=== PATIENT | female | born 1965 | race Caucasian/White ===

== ENCOUNTER 2019-04-28 19:22 | Outpatient (REF) | payer BC, SELFPAY ==
[2019-04-28 19:58] LABS: Hemoglobin A1C 5.9 % (4.5-6.2)
[2019-04-28 20:12] LABS: TSH (W/Ref FT4) 3.34 uIU/mL (0.36-3.74)
[2019-04-30 13:05] LABS: Lyme Ab w Rflx to Lyme Confirm Negative
== END 2019-04-28 19:42 ==
LOC: NCHCN 19:22
PROVIDERS: PCP Nurse Practitioner Family; Visit Provider Nurse Practitioner Family
DX: E03.9 Hypothyroidism, unspecified (principal); R73.03 Prediabetes; M25.50 Pain in unspecified joint
CPT/HCPCS: 83036; 84443; 86618

== ENCOUNTER 2019-08-13 11:53 | Outpatient (CLI) | payer BC, SELFPAY ==
[2019-08-20 15:15] LABS: TB Interpretation Negative (Negative); TB1 Ag minus Nil 0.01 IU/ml; TB2 Ag minus Nil 0.01 IU/mL
== END 2019-08-13 12:13 ==
PROVIDERS: PCP Nurse Practitioner Family; Visit Provider Nurse Practitioner Family
DX: Z11.1 Encounter for screening for respiratory tuberculosis (principal)
CPT/HCPCS: 86480

== ENCOUNTER 2019-11-06 15:45 | Outpatient (REF) | payer OTHER, SELFPAY ==
--- NOTE | 2019-11-06 15:15 | PAPFT_PTH ---
PATIENT: Annabel Conklin LOC: [facility] U#:[id number] AGE/SX: 54/F ROOM: RE11/06/[address]: Janett Patino : 1965 BED: DIS: 11/06/2019 SPEC #: [id number] RECD: 11/07/19 13:05 STATUS: MICHELLE REEvy #: [id number] RAHEL: 11/06/19 15:[address]: Janett Patino DEPT: [facility] Cytology RECD BY: Danitza Koehler Tissues: 1 - CX/ENDOCX FOR PAP SMEARS Procedures: PAP THIN PREP/UVM Screening HPV DNA PROBE Comments: [id number]
== END 2019-11-06 16:05 ==
LOC: NCHCN 15:45
PROVIDERS: PCP Nurse Practitioner Family; Visit Provider Nurse Practitioner Family
DX: Z00.00 Encounter for general adult medical examination without abnormal findings (principal); Z12.4 Encounter for screening for malignant neoplasm of cervix; Z11.51 Encounter for screening for human papillomavirus (HPV)
CPT/HCPCS: 88142; 87624

== ENCOUNTER 2019-11-10 11:46 | Day surgery (SDC) | payer OTHER, SELFPAY ==
--- NOTE | 2019-11-10 07:05 | W.COLOREPORT ---
Date of service: 11/10/19 Time of Service: 12:56 Colonoscopy Report Date of procedure: 11/10/19 Pre-op diagnosis general: Colon Cancer Screening and Family history of colon cancer Post-op diagnosis procedure note: other (polyps x2) Procedure: Colonoscopy with polypectomy Surgeon: Sherrell Santizo Anesthesia proc note operative: other (General/ ASA 2/[place]a [place]ks, LAMBERT) Estimated blood loss (mL): 3 Pathology: other (Transverse polyp and descending polyp) Complications: None Disposition: same day Indications: 54 y/o female with history of IBS and asthma presents for colonoscopy screening pre-op. Her last screening was in 2010, which was unremarkable. She reports a family history of colon cancer in her father at the age of 65. She denies any changes in bowel habits including bloody or black tarry stools, abdominal pain, diarrhea or constipation. Risks, benefits and complications have been reviewed. Complications include but are not limited to bleeding, pain, perforation, missed small lesion/polyp, sore throat, aspiration and adverse reaction to the medications. Questions were entertained and answered to their satisfaction and they wished to proceed. No guarantees were given or implied. Prep: Miralax/Dulcolax Procedure Start Time: 12:56 Procedure End Time: 13:33 Retraction Time: 28 minutes Findings: 2 Adenomatous polyps Procedure Description: After informed consent was obtained the patient was taken to the procedure room and placed in a left decubitous position. Monitors were applied and a time out was done. The patients name, date of , procedure, allergies to medications and metal in their body was reviewed. The patient was then sedated. Once sedated and comfortable a rectal exam was done. External exam was normal. Internal exam revealed a normal sphincter tone and no palpable masses. The scope was then introduced and retro-flexed. No internal hemorrhoids, masses or polyps were identified in the rectum. The scope was then advanced to the cecum without difficulty. The ileocecal valve and appendiceal orifice were identified. The prep was adequate. There was some liquid stool noted throughout the colon. The scope was then slowly retracted over 25 minutes back into the rectum. Polyps were removed with cold forceps in the Transverse colon and Descending colon. There were no diverticula noted. The scope was removed and the patient was woken up and taken back to Same day surgery in stable condition. The patient tolerated the procedure well and there were no immediate complications. Follow up: The patient should follow up in 3-5 years unless they develop changes in bowel habits or other new gastrointestinal complaints.
--- NOTE | 2019-11-10 07:06 | PDOC.DSDIS_ITS ---
Discharge Plan Disposition Patient Disposition: HOME Condition: Good Discharge Details Reason For Visit: SCREENING Attending Provider: Sherrell Santizo Primary Care Provider: Janett Patino Home Meds and New Rx's Prescriptions: Continued albuterol sulfate [Ventolin HFA] 90 mcg/actuation HFA aerosol inhaler 2 puff IH Q4H PRNRF: 0 Breo Ellipta 200-25 mcg/dose blister with device 1 inh IH DAILY RF: 0 venlafaxine 150 mg tablet extended release 24hr 150 mg PO DAILY RF: 0 Discharge Instructions Instructions: Colorectal Polyps (DC) Additional Instructions: Findings: 2 polyps Follow up: 3-5 years Please call if you develop: fevers >101.5 Nausea or Vomiting Abdominal pain that is not transient DAY SURGERY UNIT POST ENDOSCOPY INSTRUCTIONS 1. Because there will be medication in your system for the next 24 hours, you may feel a little sleepy. Your coordination will be affected. Therefore: a. Do not drive or operate dangerous equipment for 24 hours. b. Do not drink alcohol beverages for 24 hours (not even beer). c. Plan to go home and rest for the day. 2. Generally there are no restrictions on your activity after a day or so has gone by, but you may feel a bit fatigued for a few days. 3 After you arrive home you may have a light meal and return to a normal diet as you can tolerate it without feeling sick to your stomach. 4. After surgery, you may feel pain or discomfort. This should be only trejo sient, but if it persists please contact your doctor. 5. If there are any questions regarding the findings of your procedure, please feel free to contact your doctor. 6. If you are unable to contact your doctor with a problem, contact the hospital at [phone]. 7. Continue all your regular medications unless directed otherwise. I understand the above instructions and have no questions. Signature of Patient or Responsible Adult Escort Date/Time Name of Responsible Adult Escort Signature of Nurse Date/Time Activity:: Activity as Tolerated Diet:: As Tolerated Discharge Orders Discharge Orders: Discharge Order (Routine); Ordered 11/10/19 Ordered By: Sherrell Santizo
[2019-11-10 12:09] VITALS: BP 128/87; PULSE 57; RESP 16; TEMP 36.2; O2SAT 98
[2019-11-10] MEDS: Lactated Ringers 1,000 ML 80 ML IV (12:25)
--- NOTE | 2019-11-10 13:16 | BOWEL_PTH ---
PATIENT: Annabel Conklin LOC: [facility] U#:[id number] AGE/SX: 54/F ROOM: RE11/10/[address]: Sherrell Santizo MD : 1965 BED: DIS: 11/10/2019 SPEC #: [id number] RECD: 11/10/19 18:08 STATUS: MICHELLE RE #: [id number] RAHEL: 11/10/19 13:[address]: Sherrell Santizo DEPT: Surgical Specimen RECD BY: Danitza Koehler ENTERED: 11/10/19 18:08 SP TYPE: Bowel OTHR DR: Janett Patino Tissues: 1 - BIOPSY BOWEL 2 - BIOPSY BOWEL Procedures: GROSS AND MICRO LEVEL 4 Comments: [id number]
[2019-11-10 14:15] VITALS: BP 126/86; PULSE 60; RESP 16; TEMP 36.4; O2SAT 100
== END 2019-11-10 14:47 | disposition home or self-care (01) ==
LOC: SUR 11:46
PROVIDERS: PCP Nurse Practitioner Family; Visit Provider Surgery
PROC: 0DJD8ZZ Inspection of Lower Intestinal Tract, Via Natural or Artificial Opening Endoscopic (ICD-10-PCS; CPT 45378; principal; 2019-11-10 13:15)
DX: Z12.11 Encounter for screening for malignant neoplasm of colon (principal); Z80.0 Family history of malignant neoplasm of digestive organs; K58.9 Irritable bowel syndrome, unspecified
CPT/HCPCS: 45380; 88305

== ENCOUNTER 2019-12-09 02:14 | Outpatient (CLI) | payer OTHER, SELFPAY ==
--- NOTE | 2019-12-09 12:27 | DI.MAMMO_ITS ---
EXAM: MG MAMMO SCREENING CLINICAL HISTORY: SCREENING FOR BREAST CA, Z12.39 TECHNIQUE: Bilateral full field digital CC and MLO mammographic images were obtained with 3D tomosyn thesis and utilizing computer aided detection (CAD). COMPARISON: Comparison is made with exams from 2015 through [address] [facility] at [place], [place]. FINDINGS: Masses/Architectural Distortion: None seen. Microcalcifications: No suspicious pleomorphic-type are seen. Skin Thickening/Nipple Retraction: None. IMPRESSION: 1. No significant interval change with no specific features of malignancy noted. 2. Unless there is more urgent need, screening mammography is recommended, as per [employer] guidelines. Category:BI-RADS Cat 1 - Negative Density:Breast Density - Category C - Heterogeneously dense The mammogram demonstrates the patient's breast tissue is dense. Dense breast tissue is very common a nd is not abnormal but dense breast tissue can make it harder to find cancer on a mammogram. Also, de nse breast tissue may increase their breast cancer risk. This information about the result of the [facility] was provided to the patient to raise their awareness. Use this report when you speak wi th the patient about their risks for breast cancer, which includes their family history. At that time , you may recommend for more screening tests (Ultrasound or MRI) as they might be useful based on the ir risk. A negative radiographic report should not delay biopsy if a dominant or clinically suspicious mass is present. Up to ten percent of cancers are not identified on mammography. A negative report may reinforce clinical impression. Adenosis and dense breasts may obscure an underlying neoplasm. False positive reports average 6 to 10%. Patient will receive a letter notifying them of these results.
== END 2019-12-09 02:34 ==
PROVIDERS: PCP Nurse Practitioner Family; Visit Provider Nurse Practitioner Family
DX: Z12.31 Encounter for screening mammogram for malignant neoplasm of breast (principal)
CPT/HCPCS: 77063; 77067

== ENCOUNTER 2020-11-09 18:45 | Outpatient (REF) | payer BC, OTHER, SELFPAY ==
[2020-11-09 19:01] LABS: Anion Gap 9.6 mmol/L (3-11); BUN 20 mg/dL (7-18); CO2 29.4 mmol/L (21.0-32.0); Calcium 9.3 mg/dL (8.5-10.1); Calculated LDL 106 mg/dL (<100); Chloride 100 mmol/L (98-107); Cholesterol 236 mg/dL (<200); Glucose 97 mg/dL (74-106); HDL Cholesterol 108 mg/dL (40-60); Potassium 4.2 mmol/L (3.5-5.1); Sodium 139 mmol/L (136-145); TSH (W/Ref FT4) 4.87 uIU/mL (0.36-3.74); Triglyceride 113 mg/dL (<150)
[2020-11-09 19:49] LABS: FREE T4 0.75 ng/dL (0.76-1.46)
== END 2020-11-09 18:46 | disposition home or self-care (01) ==
LOC: NCHCN 18:45
PROVIDERS: PCP Nurse Practitioner Family; Visit Provider Nurse Practitioner Family
DX: E03.9 Hypothyroidism, unspecified (principal); R73.03 Prediabetes; Z13.220 Encounter for screening for lipoid disorders
CPT/HCPCS: 80048; 80061; 84439; 84443

== ENCOUNTER 2021-12-06 20:23 | Outpatient (REF) | payer OTHER, BC, SELFPAY ==
[2021-12-06 21:53] LABS: ALT 26 U/L (14-59); AST 19 U/L (15-37); Albumin 4.3 g/dL (3.4-5.0); Alkaline Phosphatase 61 U/L (46-116); Anion Gap 7.5 mmol/L (3-11); BUN 22 mg/dL (7-18); Bilirubin, Total 0.2 mg/dL (0.2-1.0); CO2 29.5 mmol/L (21.0-32.0); Calcium 9.2 mg/dL (8.5-10.1); Chloride 100 mmol/L (98-107); Estimated GFR 57.78 (mL/min/1.73m2); Ferritin 50 ng/mL (8-252); Glucose 94 mg/dL (74-106); Potassium 4.4 mmol/L (3.5-5.1); Sodium 137 mmol/L (136-145); TSH (W/Ref FT4) 2.91 uIU/mL (0.36-3.74); Total Protein 7.1 g/dL (6.4-8.2)
== END 2021-12-06 20:24 | disposition home or self-care (01) ==
LOC: NCHCN 20:23
PROVIDERS: PCP Nurse Practitioner Family; Visit Provider Nurse Practitioner Family
DX: E03.9 Hypothyroidism, unspecified (principal); R73.03 Prediabetes; Z00.00 Encounter for general adult medical examination without abnormal findings; Z86.2 Personal history of diseases of the blood and blood-forming organs and certain disorders involving the immune mechanism
CPT/HCPCS: 80053; 82306; 82728; 84443

== ENCOUNTER → 2022-01-12 01:58 | Outpatient (CLI) | payer BC, OTHER, SELFPAY ==
--- NOTE | 2022-01-12 | DI.MAMMO_ITS ---
Exam(s) MAMMO SCREENING EXAM: MAMMO SCREENING CLINICAL HISTORY: SCREENING, Z12.39 TECHNIQUE: Mammograms were interpreted according to the usual protocol including computer analysis w [employer] CAD system, tomosynthesis and C-view imaging. COMPARISON: FINDINGS: Breasts are of moderate density with fairly symmetrical distribution of fibroglandular tissue. No do minant mass or clumped microcalcification is identified in either breast. The current examination is compared with previous examinations including November 2019 and there is increased prominence of an are a of asymmetric density in the retro portion of the right breast seen only on the MLO view. Addition al mammographic views recommended including MLO spot compression view. Breast ultrasound recommended as well. No other significant interval change seen. IMPRESSION: Additional mammographic views of the right breast requested as described above. Breast ultrasound al so recommended. BI-RADS Category 0 - Assessment Incomplete: Need additional imaging evaluation Breast Density - Category B - Scattered areas of fibroglandular density
== END ==
PROVIDERS: PCP Nurse Practitioner Family; Visit Provider Nurse Practitioner Family
DX: Z12.31 Encounter for screening mammogram for malignant neoplasm of breast (principal); R92.8 Other abnormal and inconclusive findings on diagnostic imaging of breast
CPT/HCPCS: 77063; 77067

== ENCOUNTER → 2022-01-31 01:19 | Outpatient (CLI) | payer OTHER, BC, SELFPAY ==
--- NOTE | 2022-01-31 | DI.MAMMO_ITS ---
Exam(s) MG MAMMO SCREEN CALL BACK UNI US BREAST RT COMPLETE EXAM: MG MAMMO SCREEN CALL BACK UNI- RIGHT AND COMPLETE RIGHT BREAST ULTRASOUND CLINICAL HISTORY: F/U MAMMO, AREA ASYMMETRIC DENSITY RT BREAST. TECHNIQUE: Unilateral spot mammographic images obtained with 3D tomosynthesisand utilizing computer aided detection (CAD). . Complete RIGHT breast Ultrasound was also performed, including all 4 quadrants, the retroareolar kim on, and the ipsilateral axilla. COMPARISON: Prior mammograms were reviewed. This additional imaging was performed due to findings described on the recent screening mammogram of 01/12/2022. FINDINGS: Diagnostic right breast mammogram: Additional mammographic views performed todayrender this area less concerning. COMPLETE RIGHT BREAST ULTRASOUND: Ultrasound performed today reveals no evidence of solid or significant cystic lesions in the area of concern in the retroareolar region and no solid lesions in all 4 quadrants. A small benign microcyst s measuring 5 millimeters is incidentally noted at the 11 o'clock position. Scanning of the right axilla is negative for adenopathy. IMPRESSION: No radiographic evidence of malignancy in the right breast. Solitary benign micro cyst noted at 11 o'clock position of the right breast on ultrasound. Appropriate follow-up is to keep this patient yearly mammogram schedule, with earlier imaging if a s elf detected breast changes noted.. The patient was informed of these findings and recommendations by myself prior to leaving the departm ent today. BI-RADS Category 2 - Benign Findings Breast Density - Category C - Heterogeneously dense Breast density Category C or D implies that the patient has dense breast tissue. Dense breast tissue can make it harder to find cancer on a mammogram. Dense breast tissue is also associated with an incr eased risk of breast cancer. This information about the result of the mammogram report was provided to the patient to raise their awareness. Use this report when you speak with the patient about their risks for breast cancer, which includes their family history. At that time, you may recommend additional screening tests (Ultrasoun d or MRI) as these tests may add significant information. A negative radiographic report should not delay biopsy if a dominant or clinically suspicious mass is present. Up to ten percent of cancers are not identified on mammography. A negative report may reinforce clinical impression. Adenosis and dense breasts may obscure an underlying neoplasm. False positive reports average 6 to 10%. Patient will receive a letter notifying them of these results.
== END ==
PROVIDERS: PCP Nurse Practitioner Family; Visit Provider Nurse Practitioner Family
DX: Z12.31 Encounter for screening mammogram for malignant neoplasm of breast (principal); R92.8 Other abnormal and inconclusive findings on diagnostic imaging of breast; N60.01 Solitary cyst of right breast
CPT/HCPCS: 76642; 77063; 77067

== ENCOUNTER 2022-06-13 03:05 | Outpatient (CLI) | payer OTHER, BC, SELFPAY ==
[2022-06-15 09:58] LABS: TB Interpretation Negative (Negative); TB1 Ag minus Nil 0.03 IU/ml; TB2 Ag minus Nil 0.02 IU/mL
== END 2022-06-13 03:06 | disposition home or self-care (01) ==
LOC: LBO 03:05
PROVIDERS: PCP Nurse Practitioner Family; Visit Provider Nurse Practitioner Family
DX: Z11.1 Encounter for screening for respiratory tuberculosis (principal)
CPT/HCPCS: 36415; 86480

== ENCOUNTER 2022-06-20 14:55 | Outpatient (REF) | payer BC, OTHER, SELFPAY ==
[2022-06-27 04:36] LABS: Carboxy-THC Interpretation Negative.; Delta-9 CarboxyThc by LC-MS/MS Negative ng/mL (Cutoff:<3)
[2022-06-27 10:32] LABS: Buprenorphine Negative ng/mL (Cutoff: 5.0); Norbuprenorphine Negative ng/mL (Cutoff: 2.5)
[2022-06-28 11:07] LABS: Amphetamine Negative ng/mL (Cutoff: 25); Amphetamines Interpretation Negative.; MDA (Ecstasy Metabolite) Negative ng/mL (Cutoff: 25); MDMA (Ecstasy) Negative ng/mL (Cutoff: 25); Methamphetamine Negative ng/mL (Cutoff: 25); Phentermine Negative ng/mL (Cutoff: 25); Pseudoephedrine/Ephedrine Negative ng/mL (Cutoff: 25)
[2022-06-29 06:03] LABS: Benzoylecgonine Negative ng/mL (Cutoff: 50); Cocaine Negative ng/mL (Cutoff: 50); Cocaine Interpretation Negative.
[2022-06-29 12:03] LABS: Amobarbital Negative ng/mL (Cutoff: 100); Barbiturates Interpretation Negative.; Butalbital Negative ng/mL (Cutoff: 100); Pentobarbital Negative ng/mL (Cutoff: 100); Secobarbital Negative ng/mL (Cutoff: 100)
[2022-06-30 16:46] LABS: Codeine Negative ng/mL (Cutoff: 25); Dihydrocodeine Negative ng/mL (Cutoff: 25); Hydrocodone Negative ng/mL (Cutoff: 25); Hydromorphone Negative ng/mL (Cutoff: 25); Morphine Negative ng/mL (Cutoff: 25); Naloxone Negative ng/mL (Cutoff: 25); Norhydrocodone Negative ng/mL (Cutoff: 25); Noroxycodone Negative ng/mL (Cutoff: 25); Noroxymorphone Negative ng/mL (Cutoff: 25); Opiates Interpretation Negative.
[2022-07-03 06:19] LABS: 2-OH-Ethyl-Flurazepam Negative ng/mL (Cutoff: 10); 7-NH-Clonazepam Negative ng/mL (Cutoff: 10); Alpha OH-Alprazolam Negative ng/mL (Cutoff: 10); Alpha-OH Midazolam Negative ng/mL (Cutoff: 10); Alpha-OH-Triazolam Negative ng/mL (Cutoff: 10); Alprazolam Negative ng/mL (Cutoff: 10); Chlordiazepoxide Negative ng/mL (Cutoff: 10); Clobazam Negative ng/mL (Cutoff: 10); Clonazepam Negative ng/mL (Cutoff: 10); Diazepam Negative ng/mL (Cutoff: 10); Flurazepam Negative ng/mL (Cutoff: 10); Lorazepam Negative ng/mL (Cutoff: 10); Midazolam Negative ng/mL (Cutoff: 10); N-Desmethylclobazam Negative ng/mL (Cutoff: 10); Prazepam Negative ng/mL (Cutoff: 10); Temazepam Negative ng/mL (Cutoff: 10); Triazolam Negative ng/mL (Cutoff: 10)
[2022-07-04 09:00] LABS: Methadone-by GC-MS Negative ng/mL (Cutoff: 100)
== END 2022-06-20 14:56 | disposition home or self-care (01) ==
LOC: NCHCN 14:55
PROVIDERS: PCP Nurse Practitioner Family; Visit Provider Nurse Practitioner Family
DX: Z00.00 Encounter for general adult medical examination without abnormal findings (principal)
CPT/HCPCS: 80324; 80348; 80349; 80361; 80362; 80365; 80345; 80346; 80353; 80358

== ENCOUNTER 2023-01-02 02:46 | Outpatient (CLI) | payer BC, OTHER, SELFPAY ==
[2023-01-02 10:50] LABS: HCT 39.9 % (36.0-46.0); HGB 12.6 g/dL (11.2-15.7); MCH 25.4 pg (27.0-33.0); MCHC 31.6 % (32.0-36.0); MCV 80 fL (80-95); MPV 7.9 fL (8.0-11.0); Platelet Count 413 10^3/uL (130-400); RBC 4.96 10^6/uL (3.93-5.22); RDW 13.6 % (11.7-14.6); RDW-SD 39.4 fL; WBC 5.98 10^3/uL (4.4-10.8)
[2023-01-02 11:20] LABS: BUN 17 mg/dL (7-18); CREATININE 1.2 mg/dL (0.55-1.02); Calcium 9.4 mg/dL (8.5-10.1); Chloride 101 mmol/L (98-107); Estimated GFR 53.46 (mL/min/1.73m2); Glucose 103 mg/dL (74-106); Potassium 4.4 mmol/L (3.5-5.1); Sodium 139 mmol/L (136-145); TSH (W/Ref FT4) 2.89 uIU/mL (0.36-3.74)
== END 2023-01-02 02:47 | disposition home or self-care (01) ==
LOC: LBO 02:46
PROVIDERS: PCP Nurse Practitioner Family; Visit Provider Nurse Practitioner Family
DX: E03.9 Hypothyroidism, unspecified (principal); R73.03 Prediabetes; Z86.2 Personal history of diseases of the blood and blood-forming organs and certain disorders involving the immune mechanism; Z00.00 Encounter for general adult medical examination without abnormal findings
CPT/HCPCS: 36415; 80048; 85027; 83036; 84443

== ENCOUNTER 2023-01-30 02:55 | Outpatient (CLI) | payer BC, OTHER, SELFPAY ==
[2023-01-30 14:20] LABS: ALT 33 U/L (14-59); AST 21 U/L (15-37); Alkaline Phosphatase 66 U/L (46-116); Bilirubin, Total 0.3 mg/dL (0.2-1.0); Calculated LDL 104 mg/dL (<100); Cholesterol 284 mg/dL (<200); HDL Cholesterol 130 mg/dL (40-60); Total Protein 7.3 g/dL (6.4-8.2); Triglyceride 254 mg/dL (<150)
[2023-01-30 14:31] LABS: Bilirubin, Direct 0.1 mg/dL (0.0-0.2)
== END 2023-01-30 02:56 | disposition home or self-care (01) ==
PROVIDERS: PCP Nurse Practitioner Family; Visit Provider Nurse Practitioner Family
DX: Z00.00 Encounter for general adult medical examination without abnormal findings (principal); Z13.220 Encounter for screening for lipoid disorders; E03.9 Hypothyroidism, unspecified; R73.03 Prediabetes
CPT/HCPCS: 36415; 80061; 80076

== ENCOUNTER 2023-03-06 03:23 | Outpatient (CLI) | payer BC, OTHER, SELFPAY ==
[2023-03-06 15:44] LABS: Bilirubin Negative (Negative); Blood Moderate (Negative); Clarity Clear (Clear); Glucose Negative (Negative); Ketones Negative (Negative); Leukocyte Esterase Negative (Negative); Nitrite Negative (Negative); Specific Gravity <= 1.005 (1.005-1.025); Urobilinogen 0.2 mg/dL (Up to 0.2)
[2023-03-06 15:53] LABS: Bacteria Rare HPF (Negative); C & S Indicated? No; Casts Negative LPF (Negative); Crystals Negative HPF (Negative); Epithelial Cells Rare HPF (Negative); Mucus Negative (Negative); WBC 0-2 HPF (0-5)
[2023-03-06 16:35] LABS: COMMENT (LAB VIEW ONLY) 33.51 mg/dL; Microalb ug/mg Crea 15.2 ug/mg Cr
== END 2023-03-06 03:24 | disposition home or self-care (01) ==
PROVIDERS: PCP Nurse Practitioner Family; Visit Provider Family Medicine
DX: N18.31 Chronic kidney disease, stage 3a (principal)
CPT/HCPCS: 81003; 81015; 82043; 82570

== ENCOUNTER 2023-05-11 10:57 | Day surgery (SDC) | payer BC, SELFPAY ==
--- NOTE | 2023-05-10 20:05 | W.COLOREPORT ---
Date of service: 05/11/23 Time of Service: 12:19 Colonoscopy Report Date of procedure: 05/11/23 Pre-op diagnosis general: Serrated adenoma/father w/ CRC Post-op diagnosis procedure note: same Surgeon: Lida Wick Anesthesia Type: General:No Airway Estimated blood loss (mL): 0 Pathology: none sent Complications: None Disposition: same day Prep: Miralax/Dulcolax Retraction Time: 11 Procedure Description: After informed consent was obtained the patient was taken to the procedure room and placed in a left decubitous position. Monitors were applied and a time out was done. The patients name, date of , procedure, allergies to medications and metal in their body was reviewed. The patient was then sedated. Once sedated and comfortable a rectal exam was done. External exam was normal. Internal exam revealed a normal sphincter tone and no palpable masses. The scope was then introduced and retrofelexed. No internal hemorrhoids were identified. The scope was then advanced to the cecum w/out difficulty. The TI and appendiceal orifice were identified. The prep was BBPS three in all segments for a total of 9.. The scope was then slowly retracted over 11 minutes back into the rectum. No polyps/AVM's or diverticula are visulaised today. . The scope was removed and the patient was woken up and taken back to Same day surgery in stable condition. The patient tolerated the procedure well and there were no immediate complications. Follow up: The patient should follow up in 5 years unless they develop changes in bowel habits or other new gastrointestinal complaints.
--- NOTE | 2023-05-10 20:06 | PDOC.DSDIS_ITS ---
Date of service: 05/11/23 Time of Service: 12:18 Discharge Plan Disposition Patient Disposition: Home Condition: Good Discharge Details Reason For Visit: colon scope Attending Provider: Lida Wick Primary Care Provider: Dayan Castaneda Home Meds and New Rx's Prescriptions: No Action albuterol sulfate [Ventolin HFA] 90 mcg/actuation HFA aerosol inhaler 2 puff IH Q4H PRN venlafaxine 150 mg tablet extended release 24hr 150 mg PO DAILY Breo Ellipta 200-25 mcg/dose blister with device 1 inh IH DAILY PRN Discharge Instructions Additional Instructions: DSU Colonoscopy Post- Op Instructions Instructions for Everyone who is given Anesthesia: For your safety, please do the following for the next twenty-four (24) hours: *Do Not operate a motor vehicle (car, truck, motorcycle, etc.) *Do Not drink alcoholic beverages or use any recreational drugs for the first 24 hours or while taking pain medications. The medications in your body may have a reaction that can be dangerous. *Do Not make any important decisions or sign any important papers. Findings: Normal today Follow up: Repeat scop ein 5 years time. Of course, you should continue to have a yearly physical exam including a rectal exam. If you should ever notice any pain or difficulty having a bowel movement, blood in the stool, unexplained weight loss, or change in your bowel habits, please contact your health provider 1. No lifting over 20 pounds or strenuous activity for the first 24 hours after your procedure. After 24 hours there are no restrictions on your activity but you may feel fatigued for a few days. 2. After you arrive home you may have a light meal and return to your normal diet as you can tolerate it without feeling sick to your stomach. 3. You may have a bloated, gaseous feeling in your belly (abdomen) after a colonoscopy. Passing gas and belching will help. Walking or lying down on your left side with your knees flexed may relieve the discomfort. Call the office at [phone] (Office) or [phone] (Hospital) right away if you notice any of the following: a.Vomiting of blood or ?coffee ground stools?. b.Rectal bleeding 1Tbsp, blood clots or continuous bleeding. c.Severe belly (abdominal) pain. d.A hard distended belly (abdomen) and an inability to pass gas. 4. Please don?t expect to have a normal BM (bowel movement) for 2-3 days after your procedure. 5. If there are questions regarding the findings of your procedure, please contact your doctor 6. If you are unable to contact your doctor with a problem, contact the hospital at [phone]. 7. Continue all your regular medications unless directed otherwise. I understand the above instructions and have no questions. Signature of Patient or Adult Escort Name of Responsible Adult Escort Signature of Nurse Date/Time Activity:: see above Diet:: see above Discharge Orders Discharge Orders: Discharge Order (Routine); Ordered 05/11/23 Ordered By: Lida Wick DS: Diagnosis Discharge Diagnosis (1) Family history of malignant neoplasm of colon: Asessment and Plan: The patient is seen and examined after their colonoscopy.? The patient has been able to pass gas.? They are not having abdominal pain.? They have been able to tolerate liquids and a snack.? They do not have any nausea or vomiting.? They are not having any chest pain or shortness of breath.??? They are not having any rectal bleeding. Their vital signs have been stable-see nursing notes. We discussed findings during their colonoscopy, and any biopsies that were done/polyps that were removed. The patient will be sent a letter with any biopsy results, and when to repeat the colonoscopy.-see discharge instructions. Patient was given explicit instructions to follow-up regarding colonoscopy-refer to discharge instructions.? We reviewed resumption of medications. Patient verbalized understanding and discharged in stable and satisfactory condition- See nursing notes. (2) Serrated adenoma of colon: Status: Acute
[2023-05-11 11:17] VITALS: BP 122/91; PULSE 61; RESP 16; TEMP 36.3; O2SAT 99
--- NOTE | 2023-05-11 11:34 | W.ANESPRE ---
General Info Date of Service Date Performed: 05/11/23 Height: 5 ft 2 in Weight: 52.5 kg Body Mass Index (BMI): 21.2 Surgical Procedure: Operation Date: 05/11/23 11:20 Proposed Procedure Side Surgeon dannielle Wick, Meds Allergies and Home Medications Allergies Allergy/AdvReac Type Severity Reaction Status Date / Time No Known Allergies Allergy Verified 05/11/23 11:17 Home Medication Medication Instructions Recorded albuterol sulfate 90 mcg/actuation 2 puff inhalation Q4H PRN 08/05/19 aerosol inhaler (Ventolin HFA) venlafaxine 150 mg tablet,extended 150 mg PO DAILY 08/05/19 release 24 hr fluticasone furoate 200 1 inh inhalation DAILY PRN 05/03/23 mcg-vilanterol 25 mcg/dose inhalation powder (Breo Ellipta) Current Visit Medications: Current Medications Generic Name Dose Route Start Last Admin Trade Name Freq PRN Reason Stop Dose Admin Hyoscyamine Sulfate 0.125 mg 05/11/23 03:14 Hyoscyamine 0.125 Mg Sl/Oral/Chew SL 06/10/23 03:13 DIRECTED PRN Ringer's Solution 1,000 mls @ 80 mls/hr 05/11/23 06:00 IV 05/11/23 23:59 INFUSION COUNTS INCLUDE 234 BEDS AT THE [facility] IV Miscellaneous Supplies 1 each 05/11/23 06:00 Iv Access IV 05/11/23 23:59 DIRECTED ROHINI Ondansetron HCl 4 mg 05/11/23 03:14 Ondansetron 4 Mg/2 Ml Vial IVP 06/10/23 03:13 Q4H PRN PRN Nausea / Vomiting Sodium Chloride 0 ml 05/11/23 06:00 Normal Saline Flush 10 Ml Syr IV 05/11/23 23:59 PRN PRN Sodium Chloride 0 ml 05/11/23 06:00 Normal Saline 10 Ml Vial IJ 05/11/23 23:59 DIRECTED PRN Sterile Water 0 ml 05/11/23 06:00 Water,Injection,Sterile 10 Ml Vial IJ 05/11/23 23:59 DIRECTED PRN PFSH Active Problems Active Problems: Problem Status Onset Code Encounter for screening for other viral diseases Z11.59 Encounter for screening laboratory testing for COVID-19 virus Z20.822 Serrated adenoma of colon D12.6 Medical History Medical History (Updated 05/11/23 @ 11:27 by Pam Harris RN) Anxiety Asthma Colorectal polyps Family history of malignant neoplasm of colon Hypothyroid Murmur, cardiac pt states this has been present since , not followed by anyone. no medication interventions Prediabetes Medical History Comments:: Per pt. states she prefers Versed, but if you do propofol use antinausea meds per pt. request Surgical History Surgical History History of hysterectomy S/P colonoscopy (~11/10/19) 2019 - sessile serrated adenoma x2 2010- normal Tobacco Smoking/Tobacco Use Status: Never Alcohol Alcohol Intake: current Alcohol intake frequency: a few times a week Alcohol type: wine Substance Use Substance use type: does not use Vital Signs and Lab Results Vital Signs Most Recent Vital Signs in EMR: Most Recent Vital Signs Temp Pulse Resp BP Pulse Ox 36.3 C L 61 16 122/91 H 99 05/11/23 11:17 05/11/23 11:17 05/11/23 11:17 05/11/23 11:17 05/11/23 11:17 Lab Results Blood Type / Crossmatch: No Data to Display Complete Blood Count: No Data to Display Complete Metabolic Panel: No Data to Display Liver Function Panel: No Data to Display Coagulation Panel: No Data to Display Cardiac Panel: No Data to Display Arterial Blood Gas: No Data to Display Venous Blood Gas: No Data to Display Pancreas Panel: No Data to Display Thyroid Panel: No Data to Display Infectious Disease: No Data to Display Blood Cultures: No Data to Display Toxicology Panel: No Data to Display Anesthesia Assessment and Plan Anesthesia History Personal History: PONV Family History: No Family History of Anesthesia Complications Exercise Tolerance Exercise Tolerance: Metabolic Equivalents>4 Pertinent Negatives Pertinent Negatives: No Symptoms of GERD, No Major Cardiovascular Symptoms or Complaints and No Major Pulmonary Symptoms or Complaints Cardiac & Pulmonary Exam Cardiac Exam: Normal S1/S2 Heart Sounds Pulmonary Exam: Clear Bilateral Breath Sounds Implantable Cardiac Device Does patient have a Pacemaker or an ICD?: No Airway Exam Known Difficult Airway: No Mallampati Class: 1 Mouth Opening: Normal (> 3cm) Thyromental Distance: Greater than 3 cm Neck Range of Motion: Full ROM Neck Circumference: Normal Teeth Condition: Normal Dentition ASA Classification ASA Score: ASA 2 Emergency Case?: No NPO Status NPO Status: NPO Clears >2 hours, Solids >8 hours Anesthesia Plan Resuscitation Status: Full Code Anesthesia Technique: General Anesthesia Airway Planned: Natural Airway Monitors Used: Standard Monitors
[2023-05-11 11:39] VITALS: BMI 21.2
[2023-05-11] MEDS: Lactated Ringers 1,000 ML 80 ML IV (11:51)
[2023-05-11 12:18] VITALS: BP 114/79; PULSE 60; RESP 18; TEMP 36.4; O2SAT 100
[2023-05-11 12:45] VITALS: BP 127/81; PULSE 65; RESP 18; TEMP 36.5; O2SAT 99
--- NOTE | 2023-05-11 12:49 | W.ANESPOSTOP ---
Postoperative Evaluation Date, Time and Location Date Performed: 05/11/23 Time Performed: 12:49 Patient Location: Day Surgery Unit Vital Signs Most Recent Imported Vital Signs: Most Recent Vital Signs Temp Pulse Resp BP Pulse Ox 36.5 C 65 18 127/81 99 05/11/23 12:45 05/11/23 12:45 05/11/23 12:45 05/11/23 12:45 05/11/23 12:45 Pain Score Most Recent Pain Score: Most Recent Pain Score Pain Level 0 05/11/23 12:45 Assessment Mental Status: Awake (Alert & Oriented to Patient Baseline) Airway and Respiratory Function: Patent airway with normal (patient baseline) respiratory exam Cardiovascular Function: Hemodynamically Stable Hydration Status: Adequately Hydrated Nausea & Vomiting: No Nausea or Vomiting Pain: Pt. Denies Any Pain Peripheral Nerve Block: Patient did not receive a nerve block
== END 2023-05-11 10:58 | disposition home or self-care (01) ==
PROVIDERS: PCP Nurse Practitioner Family; Visit Provider Surgery
PROC: 0DJD8ZZ Inspection of Lower Intestinal Tract, Via Natural or Artificial Opening Endoscopic (ICD-10-PCS; CPT 45378; principal; 2023-05-11 11:15)
DX: Z12.11 Encounter for screening for malignant neoplasm of colon (principal); Z80.0 Family history of malignant neoplasm of digestive organs; Z86.010 Personal history of colon polyps
CPT/HCPCS: 45378; J2405

== ENCOUNTER 2024-11-27 13:03 | Outpatient (REF) | payer BC, SELFPAY ==
--- NOTE | 2024-11-27 11:30 | PAPFT_PTH ---
PATIENT: Annabel Conklin LOC: [facility] U#:[id number] AGE/SX: 59/F ROOM: RE11/27/[address]: Dayan Castaneda : 1965 BED: DIS: 11/27/2024 SPEC #: [id number] RECD: 11/27/24 18:05 STATUS: MICHELLE REQ #: [id number] RAHEL: 11/27/24 11:[address]: Dayan Castaneda DEPT: [facility] Cytology RECD BY: Danitza Koehler ENTERED: 11/27/24 18:05 SP TYPE: PAPFT OTHR DR: Unknown,Unknown Tissues: 1 - CX/ENDOCX FOR PAP SMEARS Procedures: PAP THIN PREP/UVM Screening HPV DNA PROBE Comments: [id number] (HPV 16 & 18/45)
[2024-11-27 16:09] LABS: Abs Immature Grans 0.02 10^3/uL (0.0-0.06); Absolute Basophil Count 0.06 10^3/uL (0.0-0.2); Absolute Eosinophil Count 0.35 10^3/uL (0.0-0.7); Absolute Lymphocyte Count 1.69 10^3/uL (1.2-3.4); Absolute Monocyte Count 0.44 10^3/uL (0.1-0.8); Absolute Neutrophil Count 3.77 10^3/uL (1.2-6.7); Basophils % 0.9 %; Eosinophils % 5.5 %; HCT 38.4 % (36.0-46.0); HGB 11.8 g/dL (11.2-15.7); Immature Grans % 0.3 %; Lymphocytes % 26.7 %; MCH 25.7 pg (27.0-33.0); MCHC 30.7 % (32.0-36.0); MCV 84 fL (80-95); MPV 8.6 fL (8.0-11.0); Neutrophils % 59.6 %; Platelet Count 450 10^3/uL (130-400); RDW 13.7 % (11.7-14.6); RDW-SD 41.7 fL; WBC 6.33 10^3/uL (4.4-10.8)
[2024-11-27 16:25] LABS: Hemoglobin A1C 5.8 % (<5.7)
[2024-11-27 17:19] LABS: Calculated LDL 125 mg/dL (<100); Cholesterol 266 mg/dL (<200); HDL Cholesterol 127 mg/dL (>or=50); Triglyceride 70 mg/dL (<150)
[2024-11-27 17:53] LABS: TSH 3.44 uIU/mL (0.36-3.74)
[2024-11-27 22:09] LABS: T4, Free 0.9 ng/dL (0.8-2.2)
== END 2024-11-27 13:04 | disposition home or self-care (01) ==
LOC: NCHCN 13:03
PROVIDERS: Visit Provider Nurse Practitioner Family
DX: Z13.6 Encounter for screening for cardiovascular disorders (principal); Z86.2 Personal history of diseases of the blood and blood-forming organs and certain disorders involving the immune mechanism; E03.9 Hypothyroidism, unspecified; R73.03 Prediabetes
CPT/HCPCS: 80061; 88142; 83036; 84439; 84443; 85025; 87624